=== PATIENT | female | born 1975 | race Caucasian/White ===

== ENCOUNTER 2016-09-03 12:54 | Inpatient (IN) | payer OTHER ==
[~2016-09-03] VITALS: Ht 162.6 cm; Wt 93.1 kg
[2016-09-03] VITALS (8 sets, daily range): BP systolic 106–128; BP diastolic 65–89
--- NOTE | 2016-09-03 12:59 | NUR ---
Pt admitted to room [address] Dale Rojas office.
--- NOTE | 2016-09-03 13:37 | NUR ---
Left RISK MANAGEMENT SPECIALIST accessed using 20g 1 1/4 inch andrade needle. Pt assisted in sterile access as she reports having to access herself 2-3 monthly at home for IVF.
[2016-09-03] MEDS ORDERED: CALCIUM CARBONATE CHEWABLE 300 MG (TUMS) TABLET PO PRN (13:55)
[2016-09-03] MEDS ORDERED: POLYETHYLENE GLYCOL 17 GM (MIRALAX) PACKET PO PRN (13:55)
[2016-09-03] MEDS ORDERED: MAGNESIUM HYDROXIDE 80MG/ML (MILK OF MAGNESIA) 30 ML UDC PO PRN (13:55)
[2016-09-03] MEDS ORDERED: MAG HYDROX/AL HYDROX/SIMETH 200-200-20/5 ML (MAG-AL PLUS) 30 ML UDC PO PRN (13:55)
[2016-09-03] MEDS ORDERED: ACETAMINOPHEN 325 MG TAB (TYLENOL) PO PRN (13:55)
[2016-09-03] MEDS ORDERED: DOCUSATE SODIUM 100 MG (COLACE) CAP PO PRN (13:55)
[2016-09-03] MEDS ORDERED: ONDANSETRON 4 MG (ZOFRAN) ORAL DISSOLVE TAB PO PRN (13:55)
[2016-09-03] MEDS ORDERED: HYDROmorphone 2 MG/ML (DILAUDID) 1 ML SYRINGE ONE (14:06)
[2016-09-03] MEDS: HYDROmorphone 1 MG/ML (DILAUDID) SYRINGE IV PRN ×2 (14:09→16:20)
--- NOTE | 2016-09-03 14:15 | NUR ---
Dilaudid 1mg IV given as ordered for abd pain rated 7/10. Lab in room for lab draw as ordered. Mason, Radiology here to take patient to Abd xray.
[2016-09-03] MEDS: PROMETHAZINE HCL INJ 12.5 MG in SODIUM CHLORIDE 25 ML IV PRN (14:20)
[2016-09-03 14:26] LABS: BASOPHILS % (AUTO) 0 % (0-2); EOSINOPHILS # (AUTO) 0.1 10^3uL; EOSINOPHILS % (AUTO) 1 % (0-4); LYMPHOCYTES # (AUTO) 2.4 X10^3; MEAN CORPUSCULAR HEMOGLOBIN 27.8 PG (26.0-34.0); MEAN CORPUSCULAR HGB CONC 34.7 g/dL (31.0-37.0); MEAN CORPUSCULAR VOLUME 80 FL (80-100); MEAN PLATELET VOLUME 9.5 FL (6.0-9.5); MONOCYTES # (AUTO) 0.4 X10^3; MONOCYTES % (AUTO) 6 % (3-11); NEUTROPHILS # (AUTO) 4.2 X10^3; NEUTROPHILS % (AUTO) 59 % (51-67); PLATELET COUNT 322 10^3uL (150-450); WHITE BLOOD COUNT 7.19 10^3uL (4.0-11.0)
[2016-09-03] MEDS ORDERED: NS FLUSH 3 ML PRN IV (14:35)
[2016-09-03] MEDS: KETOROLAC 15 MG/ML (TORADOL) 1 ML VIAL IV PRN (14:36)
--- NOTE | 2016-09-03 14:41 | NUR ---
Phenergan infusing at 1433 as ordered for nausea- no vomiting. Ketoralac 15mg IV given now for continued abd pain rated 7/10- unrelieved by Babak. UA to lab at this time.
[2016-09-03 14:52] LABS: BILIRUBIN,URINE Negative (Negative); CLARITY,URINE Clear; COLOR,URINE Yellow; GLUCOSE, URINE (UA) Negative (Negative); LEUKOCYTE ESTERASE ,URINE Negative (Negative); UROBILINOGEN,URINE 0.2 mg/dL (0.2-1.0)
[2016-09-03 14:57] LABS: ALBUMIN 4.2 g/dL (3.4-5.0); ANION GAP 14.7 MEQ/L (3-15); TOTAL PROTEIN 7.6 g/dL (6.4-8.5)
[2016-09-03 15:00] LABS: RBC,URINE None Seen /HPF; URINE CENTRIFUGED VOLUME 12 mL
--- NOTE | 2016-09-03 16:22 | NUR ---
Pt requests Dilaudid - given as ordered. Abdominal pain rated 8/10 at this time. Will speak to Dr. Stern regarding pain meds not lasting
[2016-09-03] MEDS ORDERED: ALBUTEROL HFA (VENTOLIN HFA) COMMON CANNISTER IH PRN (16:30)
[2016-09-03] MEDS: LACTATED RINGERS 1,000 ML IV SCH ×2 (16:40→22:10)
[2016-09-03] MEDS ORDERED: HYDROmorphone 2 MG/ML (DILAUDID) 1 ML SYRINGE IV PRN (16:55)
[2016-09-03] MEDS ORDERED: NALOXONE 0.4 MG/ML (NARCAN) 1 ML VIAL IV PRN (17:00)
[2016-09-03] MEDS: HYDROmorphone PCA 30 MG/30 ML (DILAUDID) VIAL IV PRN (17:01)
--- NOTE | 2016-09-03 17:05 | NUR ---
Dilaudid ROTARY SWAGING MACHINE OPERATOR started at this time as ordered by Dr. Stern, verified by Andria Hernandez RN. Pt awake/alert/oriented x4. VSS.
--- NOTE | 2016-09-03 17:50 | NUR ---
Pt ambulating halls several laps at this time accompanied by daughter.
--- NOTE | 2016-09-03 20:21 | NUR ---
Pt is sitting up in bed visiting with friend, alert and oriented x 4, Resp are even and nonlabored, LCTAB, HRRR, BS are active x 4 quadrants, currently reports that abdomen is tender to touch, rates 5/10 at this time. Pt reports she has itching but that it is not from the Dilaudid, did text Dr for order for Benadryl. Pt later is walking in hallway and comes up to this RN and reports that she takes Neurontin 300mg at HS and it's very important for her to have it. Sent message to Dr. Gee new order. PAC is infusing without difficulty, no redness, swelling, or s/s of infection noted at this time. Call light is in reach, will continue to monitor.
[2016-09-03] MEDS: GABAPENTIN 300 MG (NEURONTIN) CAP PO SCH (20:31)
[2016-09-03] MEDS: diphenhydrAMINE 50 MG/ML INJ (BENADRYL) IV PRN (20:32)
[2016-09-03] MEDS: METOCLOPRAMIDE 10 MG/2 ML (REGLAN) VIAL IV PRN (22:10)
[2016-09-04] VITALS (9 sets, daily range): BP systolic 113–137; BP diastolic 63–86
[2016-09-04] MEDS: diphenhydrAMINE 50 MG/ML INJ (BENADRYL) IV PRN ×3 (04:00→19:24)
--- NOTE | 2016-09-04 04:03 | NUR ---
Pt is resting in bed watching tv, complained of itching, gave Benadryl 25mg SIVP for discomfort. Rates abdominal pain 4/10 at this time. Denies further needs at this time. Will continue to monitor.
[2016-09-04] MEDS ORDERED: LEVOTHYROXINE 50 MCG (LEVOTHROID) TABLET ONE (04:50)
[2016-09-04] MEDS: LACTATED RINGERS 1,000 ML IV SCH ×2 (04:51→11:40)
[2016-09-04] MEDS: LEVOTHYROXINE 25 MCG PO SCH (04:51)
[2016-09-04] MEDS: METOCLOPRAMIDE 10 MG/2 ML (REGLAN) VIAL IV PRN ×3 (05:47→22:16)
[2016-09-04 06:25] LABS: BASOPHILS % (AUTO) 0 % (0-2); EOSINOPHILS # (AUTO) 0.1 10^3uL; EOSINOPHILS % (AUTO) 2 % (0-4); LYMPHOCYTES # (AUTO) 3.1 X10^3; MEAN CORPUSCULAR HEMOGLOBIN 28.2 PG (26.0-34.0); MEAN CORPUSCULAR HGB CONC 34.3 g/dL (31.0-37.0); MEAN CORPUSCULAR VOLUME 82 FL (80-100); MEAN PLATELET VOLUME 9.4 FL (6.0-9.5); MONOCYTES # (AUTO) 0.6 X10^3; MONOCYTES % (AUTO) 8 % (3-11); NEUTROPHILS # (AUTO) 3.9 X10^3; NEUTROPHILS % (AUTO) 50 % (51-67); PLATELET COUNT 291 10^3uL (150-450); WHITE BLOOD COUNT 7.79 10^3uL (4.0-11.0)
[2016-09-04 06:54] LABS: ALBUMIN 3.8 g/dL (3.4-5.0); ANION GAP 14.8 MEQ/L (3-15); CALCULATED IONIZED CALCIUM 3.8 mg/dL (3.8-4.6); TOTAL PROTEIN 6.7 g/dL (6.4-8.5)
[2016-09-04] MEDS: PANTOPRAZOLE 40 MG (PROTONIX) TAB PO SCH (08:51)
[2016-09-04] MEDS: BUPROPION PO SCH (08:51)
--- NOTE | 2016-09-04 08:55 | NUR ---
NUTRITION ASSESSMENT Level 1 Patient: Ynes Proctor Age/Sex: 41/F Date Screened: 09-04-16 Weight: 210.3#/95.6 kg Height: 64 inches Primary Diagnosis: abdominal pain Diet Order: NPO Relevant labs: glucose 84, Hgb A1c 5.7, amylase/lipase WNL Food allergies: GLUTEN Nutrition Assessment Criteria Age over 80: N Body Mass Index (BMI) under 19: N Admission Screening Indicates Risk? 3 points Moderate/High Risk Diagnosis: 3 points TPN or PPN: N NPO or clear liquid diet: Yes Serum Glucose <70 or >180: N Hgb A1c >6.7: N Total: 6 points Risk Screen: __ Patient at low nutritional risk based on available data; reevaluate in 5-7 days __ Patient at moderate nutritional risk based on available data; reevaluate in 3-5 days _X_ Patient at high nutritional risk; complete Nutrition Assessment within 48 hours of admission.
[2016-09-04] MEDS ORDERED: NS FLUSH 3 ML DAILY IV SCH (09:00)
--- NOTE | 2016-09-04 10:12 | NUR ---
PRN Benadryl given at this time for c/o itching d/t using a face wash from home that had previously given her hives. Denies other needs.
--- NOTE | 2016-09-04 11:23 | NUR ---
MED REC COMPLETE--current list obtained from medication list provided by patient's PCP, patient report, retail pharmacy, and external med history application. conducted by Chiquis Villaseñor PharmD Candidate 2017.
--- NOTE | 2016-09-04 12:26 | NUR ---
NUTRITION ASSESSMENT Level II Patient: Ynes Proctor Age/Sex: 41/F Date Assessed: 09-04-16 ASSESSMENT Pertinent History: Patient admitted with abdominal pain and screened at high nutritional risk secondary to diagnosis and significant GI history including pancreatitis and celiac disease. PMHx includes chronic pancreatitis, asthma, celiac disease, nephrolithiasis, hypothyroidism, and hypoglycemia. Pt. has had numerous visits to the ED re: abdominal pain (9 in Mar., 4 in , and 1 each in and 2015). Her p.o. intake decreased starting on 09-02. She reportedly takes her pancreatic enzymes as prescribed at home. Weight has been fluctuating; was 207# in 2015 and 215# in 2015. She will need a GLUTEN-FREE DIET when taking p.o. nutrition. Meds/Nutrition: Protonix, Synthroid, Lactated Ringers Weight: 210.3#/95.6 kg Height: 64 inches Body Mass Index (BMI): 36.2 [place] Body Weight : 120#/54.5 kg % IBW: 175% GASTROINTESTINAL Appetite: poor Diet Order: NPO Unintentional loss of >10 lbs. in 3 months: N Difficult to chew/swallow: N Diabetes: N Relevant Labs: glucose 84, Hgb A1c 5.7, amylase/lipase WNL Calculations for Nutritional Assessment Estimated calorie needs: 22-25 kcals/kg = 2,090-2,375 kcals (minus 500 for weight loss) Estimated protein needs: 0.8-1.0 g/kg = 76-95 g./day DIAGNOSIS 1. Nutrition Diagnosis: Inadequate intake related to impaired nutrient utilization as evidenced by acute- on chronic abdominal pain with hx. pancreatitis and celiac disease, currently NPO. NUTRITIONAL INTERVENTION Goal: Patient will receive adequate nutrition to meet her needs within an appropriate time-frame. Plan: Will monitor length of time NPO and tolerance to diet as advanced. Will need a gluten-free diet when she can take p.o. nutrition; dietary staff aware. MONITORING & EVALUATION __ Monitor patients menu selections __ Monitor patients food intake per nursing notes _X_ Monitor NPO/clear liquid days _X_ Monitor lab values __ Monitor I&O __ Other
--- NOTE | 2016-09-04 14:30 | NUR ---
PRN Reglan given at this time for c/o nausea. Denies other needs.
[2016-09-04] MEDS ORDERED: FUROSEMIDE 40 MG/4 ML (LASIX) VIAL IV ONE (14:53)
--- NOTE | 2016-09-04 15:03 | NUR ---
One time dose of IV Lasix administered at this time. IVF rate decreased to 20mL/hr per order. End tidal CO2 monitor placed per protocol with MANAGER CARDIOVASCULAR. Denies needs.
--- NOTE | 2016-09-04 18:18 | NUR ---
Pt up ad jennifer in room and in halls. NUMERICAL CONTROL MACHINE TOOL OPERATOR and carrier fluids infusing with no difficulty. Pain is well controlled by NUMERICAL CONTROL MACHINE TOOL OPERATOR. Skin warm, dry, intact. Resprs nonlabored, even on RA. End tidal CO2 monitor on. Denies needs.
[2016-09-04] MEDS: PROMETHAZINE HCL INJ 12.5 MG in SODIUM CHLORIDE 25 ML IV PRN (18:38)
--- NOTE | 2016-09-04 18:39 | NUR ---
PRN Phenergan given at this time for c/o nausea. Denies other needs.
[2016-09-04] MEDS: GABAPENTIN 300 MG (NEURONTIN) CAP PO SCH (20:32)
[2016-09-04] MEDS: HYDROmorphone PCA 30 MG/30 ML (DILAUDID) VIAL IV PRN (21:22)
[2016-09-04] MEDS: NS FLUSH 10 ML PRN IV (22:16)
[2016-09-05] VITALS (8 sets, daily range): BP systolic 124–138; BP diastolic 75–92
[2016-09-05] MEDS: diphenhydrAMINE 50 MG/ML INJ (BENADRYL) IV PRN ×3 (05:54→20:09)
[2016-09-05] MEDS: LEVOTHYROXINE 25 MCG PO SCH (05:54)
--- NOTE | 2016-09-05 06:29 | NUR ---
Pt rests in short intervals throughout the night. Dilaudid MOLD OPERATOR infusing alongside LR carrier fluid. Pt rates abd pain at 7/10 this morning. PRN benadryl provided per pt request. No further needs at this time.
[2016-09-05] MEDS: PANTOPRAZOLE 40 MG (PROTONIX) TAB PO SCH (08:40)
[2016-09-05] MEDS: BUPROPION PO SCH (08:41)
[2016-09-05] MEDS: PROMETHAZINE HCL INJ 12.5 MG in SODIUM CHLORIDE 25 ML IV PRN ×2 (08:43→23:15)
[2016-09-05] MEDS: LACTATED RINGERS 1,000 ML IV SCH (12:35)
[2016-09-05] MEDS ORDERED: BISACODYL 10 MG SUPP (DULCOLAX) PR PRN (18:30)
[2016-09-05] MEDS ORDERED: PANTOPRAZOLE 40 MG (PROTONIX) VIAL IV ONE (20:05)
[2016-09-05] MEDS: GABAPENTIN 300 MG (NEURONTIN) CAP PO SCH (20:09)
[2016-09-05] MEDS: PANTOPRAZOLE IV 40 MG in SODIUM CHLORIDE FLUSH 10 ML IV SCH (20:09)
[2016-09-05] MEDS: KETOROLAC 15 MG/ML (TORADOL) 1 ML VIAL IV PRN (21:18)
[2016-09-05] MEDS: HYDROmorphone PCA 30 MG/30 ML (DILAUDID) VIAL IV PRN (21:43)
[2016-09-06] VITALS (8 sets, daily range): BP systolic 103–120; BP diastolic 50–72
[2016-09-06] MEDS: diphenhydrAMINE 50 MG/ML INJ (BENADRYL) IV PRN ×2 (04:35→12:44)
[2016-09-06] MEDS: LEVOTHYROXINE 25 MCG PO SCH (06:18)
[2016-09-06] MEDS: PROMETHAZINE HCL INJ 12.5 MG in SODIUM CHLORIDE 25 ML IV PRN (06:18)
[2016-09-06 06:34] LABS: BASOPHILS % (AUTO) 1 % (0-2); EOSINOPHILS # (AUTO) 0.2 10^3uL; EOSINOPHILS % (AUTO) 4 % (0-4); LYMPHOCYTES # (AUTO) 2.2 X10^3; MEAN CORPUSCULAR HEMOGLOBIN 28.2 PG (26.0-34.0); MEAN CORPUSCULAR HGB CONC 34.7 g/dL (31.0-37.0); MEAN CORPUSCULAR VOLUME 81 FL (80-100); MEAN PLATELET VOLUME 9.4 FL (6.0-9.5); MONOCYTES # (AUTO) 0.4 X10^3; MONOCYTES % (AUTO) 9 % (3-11); NEUTROPHILS # (AUTO) 1.9 X10^3; NEUTROPHILS % (AUTO) 40 % (51-67); PLATELET COUNT 305 10^3uL (150-450); WHITE BLOOD COUNT 4.78 10^3uL (4.0-11.0)
[2016-09-06] MEDS: KETOROLAC 15 MG/ML (TORADOL) 1 ML VIAL IV PRN (06:39)
--- NOTE | 2016-09-06 06:39 | NUR ---
Pt c/o increasing abd pain rated at 9/10 that is not controlled with dilaudid RADIAGRAPH OPERATOR. Dr Prakash notified; order to give 1 mg IV dilaudid bolus via RADIAGRAPH OPERATOR received. Checked with LILY Durbin. Resp even and non labored on RA. Pt visibly upset, tearful. Denies further needs at this time.
[2016-09-06 07:15] LABS: ALBUMIN 4.1 g/dL (3.4-5.0); MAGNESIUM* 2.2 mg/dL (1.6-2.3); PHOSPHORUS 3.8 mg/dL (2.4-4.9)
--- NOTE | 2016-09-06 08:35 | NUR ---
Pt was found to have end tidal monitor completely turned off. Replaced and turned on. Sats 80-85% on RA, RR between 5-10. Pt does not rouse to voice, VS, or placing NC on. Pt roused to approx 10 seconds of sternal rub. at bedside. 1L NC placed. RT and Dr Prakash notified. Will continue to monitor. DISTRIBUTION COLLECTION OPERATOR turned off at this time per Dr Prakash.
[2016-09-06] MEDS: BUPROPION PO SCH (09:08)
[2016-09-06] MEDS: PANTOPRAZOLE IV 40 MG in SODIUM CHLORIDE FLUSH 10 ML IV SCH ×2 (09:10→20:51)
--- NOTE | 2016-09-06 09:15 | NUR ---
Pt more awake at this time. Rates pain 6/10. Explained reasoning for turning POSTAL SUPERINTENDENT off. HR 75, O2 sats 98% on 1L, titrated to RA. CO2 40, RR 18. Pt's sats were 96% on RA within 3 mins of titrating. Will continue to monitor.
--- NOTE | 2016-09-06 11:35 | NUR ---
Upon assessing vital signs, pt informed staff that she increased her O2 herself to 2L as the end tidal CO2 monitor showed 91%. Pt stated that she changed the probe to another finger and her sats showed 97%. This nurse went into room and titrated her to RA, sats 95%. RT and Dwain notified. 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 Explained it is for her safety and that we have to document everything. Pt states "oh I know, I'm a nurse". Pt visibly frustrated and agitated, states "you haven't been the friendliest person today" to RT Daryl. Informed pt we are just here to take care of her and not work against her. Will continue to monitor. Dwain aware.
[2016-09-06] MEDS: LACTATED RINGERS 1,000 ML IV SCH (12:35)
--- NOTE | 2016-09-06 12:49 | NUR ---
PRN Benadryl given at this time for c/o "itching". Pt sitting in bed, cell phone in hand. Pt does not put cell phone down while this nurse was in room. No redness, hives, scratch arreguin noted on body. Pt states "you've done so well with me the past couple days, I appreciate it". End tidal monitor DC'd at this time.
[2016-09-06] MEDS: HYDROmorphone 1 MG/ML (DILAUDID) SYRINGE IV PRN ×2 (14:23→20:51)
--- NOTE | 2016-09-06 15:40 | NUR ---
PRN Dilaudid given at this time for c/o abd/flank pain rated 7/10. at bedside. Pt continues on her cell phone, states she has been watching "Dr Sheba Fitzgerald" videos to distract her from the pain. Denies additional needs.
--- NOTE | 2016-09-06 18:46 | NUR ---
Pt rests in bed this shift. Up ad jennifer in room. Skin warm, dry, intact. Resprs nonlabored, even on RA. Port is SL at this time. Pt denies needs.
--- NOTE | 2016-09-06 20:00 | NUR ---
Resting in bed. Watching TV with . No discomforts voiced at this time.
--- NOTE | 2016-09-06 20:51 | NUR ---
Dilaudid 1mg administered Slowly via port. Flushed with NS before and after medication given. No other needs at this time. in room.
[2016-09-06] MEDS: GABAPENTIN 300 MG (NEURONTIN) CAP PO SCH (21:00)
--- NOTE | 2016-09-06 23:00 | NUR ---
left for a short while and returned with food. Patient was wanting food earlier and reminded her that she was NPO, due to her abdominal pain, and Dr's orders. Oral swabs given with a small amount of water. Unsure if patient ate any food, but she quit asking for it.
[2016-09-07] MEDS: HYDROmorphone 1 MG/ML (DILAUDID) SYRINGE IV PRN ×2 (00:02→04:21)
--- NOTE | 2016-09-07 00:02 | NUR ---
Dilaudid 1mg administered IV slowly for abdominal discomfort rated 5 out of 10. Patient texting on phone. Call light within reach.
[2016-09-07] MEDS: NS FLUSH 10 ML PRN IV ×2 (00:03→04:20)
[2016-09-07 01:20] VITALS: BP 112/66
--- NOTE | 2016-09-07 04:20 | NUR ---
Patient has rested well. Iv Dilaudid 1mg administered slowly via port per protocol, for abdominal discomfort. Denies nausea. Has rested well tonight. Watches TV off and on. No other needs at this time.
[2016-09-07 06:04] LABS: BASOPHILS % (AUTO) 0 % (0-2); EOSINOPHILS # (AUTO) 0.2 10^3uL; EOSINOPHILS % (AUTO) 4 % (0-4); LYMPHOCYTES # (AUTO) 2.2 X10^3; MEAN CORPUSCULAR HEMOGLOBIN 28.6 PG (26.0-34.0); MEAN CORPUSCULAR HGB CONC 34.7 g/dL (31.0-37.0); MEAN CORPUSCULAR VOLUME 83 FL (80-100); MEAN PLATELET VOLUME 9.6 FL (6.0-9.5); MONOCYTES # (AUTO) 0.4 X10^3; MONOCYTES % (AUTO) 9 % (3-11); NEUTROPHILS % (AUTO) 42 % (51-67); PLATELET COUNT 254 10^3uL (150-450); WHITE BLOOD COUNT 4.89 10^3uL (4.0-11.0)
[2016-09-07 06:15] VITALS: BP 108/63
[2016-09-07 06:26] LABS: ALBUMIN 3.2 g/dL (3.4-5.0); ANION GAP 14.8 MEQ/L (3-15); MAGNESIUM* 2.2 mg/dL (1.6-2.3); PHOSPHORUS 3.7 mg/dL (2.4-4.9)
--- NOTE | 2016-09-07 06:26 | NUR ---
Resting with eyes closed,. Respirations even at 16 per minute. Vitals stable. Remains NPO. Uses oral swabs as needed. Call light within reach.
[2016-09-07] MEDS: LEVOTHYROXINE 25 MCG PO SCH (06:31)
--- NOTE | 2016-09-07 08:30 | NUR ---
Pt awoken for vital signs but pt fell fast asleep again once staff left room. Pt sleeping soundly in bed at this time. Pt not awaken for assessment at this time d/t pt's lack of sleep this admission. RR 18 at this time. Will continue to monitor.
[2016-09-07 08:45] VITALS: BP 110/65
--- NOTE | 2016-09-07 11:27 | NUR ---
Pt continues to be fast asleep during hourly rounding this morning. RR nonlabored, even, rate 20bpm. Dwain aware. Will continue to allow pt to sleep.
[2016-09-07 11:55] VITALS: BP 113/78
[2016-09-07] MEDS: BUPROPION PO SCH (12:20)
[2016-09-07] MEDS: PANTOPRAZOLE IV 40 MG in SODIUM CHLORIDE FLUSH 10 ML IV SCH (12:21)
--- NOTE | 2016-09-07 12:25 | NUR ---
Pt awake to take AM meds; drank apple juice and some iced tea, ate jello, and fell back asleep. Pt and deny needs. Will continue to monitor.
--- NOTE | 2016-09-07 15:53 | NUR ---
Discharge instructions reviewed with patient and , both demonstrate understanding. Port flushed with saline, then heparin, and deaccessed. Bandaid applied. Changed into home clothes. Pt dismissed at this time via w/c accompanied by Pilar Mitchell CNA and spouse. Belongings and DC packet sent with patient.
== END 2016-09-07 15:53 | disposition home or self-care (01) | DRG 440 ==
LOC: UNDOADMOB 12:54 → MED/SURG 12:54 → OBSVTOIN 12:54
PROVIDERS: ADMIT Internal Medicine; ATTEND Internal Medicine
DX: K85.90 Acute pancreatitis without necrosis or infection, unspecified (principal); K86.1 Other chronic pancreatitis; G89.29 Other chronic pain; R10.12 Left upper quadrant pain; K90.0 Celiac disease; E03.9 Hypothyroidism, unspecified; F41.9 Anxiety disorder, unspecified; J45.909 Unspecified asthma, uncomplicated; Z79.891 Long term (current) use of opiate analgesic
CPT/HCPCS: 36415; 74022; 74176; 80053; 80069; 81003; 81015; 82150; 83036; 83690; 83735; 84703; 85025; 86140; 94770